=== PATIENT | female | born 1975 | race Hispanic/Latino ===

== ENCOUNTER 2019-01-21 22:36 | Emergency (ER) | payer MEDICAID, OTHER ==
[2019-01-21] MEDS ORDERED: ONDANSETRON HCL 4 MG/2 ML VIAL ONE (23:14)
[2019-01-21 23:18] LABS: BASOPHILS % (AUTO) 0.6 % (0.0-5.0); EOSINOPHILS % (AUTO) 0.1 % (0.0-8.0); HEMATOCRIT 45.1 % (36-48); LYMPHOCYTES % (AUTO) 23.4 % (21.0-51.0); MEAN CORPUSCULAR HEMOGLOBIN 27.3 pg (27.0-33.0); MEAN CORPUSCULAR HGB CONC 33.7 g/dL (32.0-36.0); MEAN CORPUSCULAR VOLUME 80.8 fL (79-99); MONOCYTES % (AUTO) 4.5 % (3.0-13.0); NEUTROPHILS % (AUTO) 71.4 % (40.0-77.0); PLATELET COUNT (AUTO) 221 K/uL (130-400); RED BLOOD CELL COUNT(AUTO) 5.59 MIL/uL (4.00-5.50); RED CELL DISTRIBUTION WIDTH 13.8 % (11.0-15.5); WHITE BLOOD COUNT (AUTO) 9.9 K/uL (4.8-10.8)
[2019-01-21 23:34] LABS: APPEARANCE,URINE Cloudy (CLEAR); BILIRUBIN,URINE Negative (NEGATIVE); COLOR,URINE Yellow (YELLOW); GLUCOSE, URINE (UA) >=1000 mg/dL (NEGATIVE); KETONES,URINE 40 mg/dL (NEGATIVE); LEUKOCYTE ESTERASE ,URINE Negative (NEGATIVE); NITRATE,URINE Positive (NEGATIVE); OCCULT BLOOD,URINE Negative (NEGATIVE); PROTEIN,URINE 300 mg/dL (NEGATIVE)
[2019-01-21 23:34] LABS: CREATININE 0.5 mg/dL (0.5-1.5); POTASSIUM 4.7 mmol/L (3.5-5.1)
[2019-01-21 23:38] LABS: ALBUMIN 3.7 g/dL (3.5-5.0); BILIRUBIN,DIRECT 0.1 mg/dL (0.0-0.3); BILIRUBIN,TOTAL 0.6 mg/dL (0.2-1.0); TOTAL PROTEIN, SERUM 7.7 g/dL (6.0-8.3)
[2019-01-21 23:48] LABS: RBC,URINE 0-1 /HPF (0-1)
[2019-01-21 23:49] LABS: BACTERIA,URINE Many /HPF (None Seen); MUCUS,URINE Few LPF (None Seen); SQUAMOUS EPITHELIAL CELL,UR Few /HPF (0-2)
[2019-01-22] MEDS ORDERED: SODIUM CHLORIDE 0.9% 1000ML 1,000 ML IV ONE (00:16)
[2019-01-22] MEDS ORDERED: CEFTRIAXONE SODIUM 1 GM ONE (01:04)
[2019-01-22] MEDS ORDERED: SODIUM CHLORIDE 0.9% 50 ML IV ONE (01:05)
== END 2019-01-22 01:46 | disposition home or self-care (01) ==
LOC: EDH 22:36
DX: E11.65 Type 2 diabetes mellitus with hyperglycemia (principal); N39.0 Urinary tract infection, site not specified; R94.5 Abnormal results of liver function studies; R93.2 Abnormal findings on diagnostic imaging of liver and biliary tract; I10 Essential (primary) hypertension
CPT/HCPCS: 36415; 76705; 80048; 80076; 81001; 82550; 82948; 83690; 84484; 85025; 93005; 96361; 96374; 96375; 99285; J0696; J2405; J7030

== ENCOUNTER 2023-05-16 14:33 | Emergency (ER) | payer OTHER ==
[~2023-05-16] VITALS: Ht 162.6 cm; Wt 79.8 kg
[2023-05-16] MEDS ORDERED: HYDROCODONE/ACETAMINOPHEN 5/325 MG TAB PO ONE (20:00)
[2023-05-16 22:16] VITALS: BP 141/74; PULSE 74; RESP 16; O2SAT 98
== END 2023-05-16 22:17 | disposition home or self-care (01) ==
LOC: EDBD 14:33 → EDH 14:33
DX: S83.91XA Sprain of unspecified site of right knee, initial encounter (principal); I10 Essential (primary) hypertension; E11.9 Type 2 diabetes mellitus without complications; W18.30XA Fall on same level, unspecified, initial encounter; Y93.01 Activity, walking, marching and hiking; Y92.89 Other specified places as the place of occurrence of the external cause; Y99.8 Other external cause status
CPT/HCPCS: 73562; 73700

== ENCOUNTER 2024-05-01 20:34 | Emergency (ER) | payer SELFPAY ==
[~2024-05-01] VITALS: Ht 157.5 cm; Wt 79.8 kg
[2024-05-01 21:02] LABS: BASOPHILS # (AUTO) 0.04 K/uL (0.00-0.20); BASOPHILS % (AUTO) 0.4 % (0.0-5.0); EOSINOPHILS # (AUTO) 0.07 K/uL (0.00-0.70); EOSINOPHILS % (AUTO) 0.7 % (0.0-8.0); HEMATOCRIT 39.2 % (36-48); IMMATURE GRANULOCYTE ABSOLUTE 0.04 K/uL (0-1); LYMPHOCYTES # (AUTO) 3.4 K/uL (1.0-4.8); LYMPHOCYTES % (AUTO) 32.8 % (21.0-51.0); MEAN CORPUSCULAR HEMOGLOBIN 27.7 pg (27.0-33.0); MEAN CORPUSCULAR HGB CONC 34.7 g/dL (32.0-36.0); MEAN CORPUSCULAR VOLUME 79.8 fL (79-99); MONOCYTES # (AUTO) 0.6 K/uL (0.1-1.0); MONOCYTES % (AUTO) 5.7 % (3.0-13.0); NEUTROPHILS # (AUTO) 6.3 K/uL (1.8-7.7); PLATELET COUNT (AUTO) 270 K/uL (130-400); RED BLOOD CELL COUNT(AUTO) 4.91 MIL/uL (4.00-5.50); RED CELL DISTRIBUTION WIDTH 13.2 % (11.0-15.5); WHITE BLOOD COUNT (AUTO) 10.5 K/uL (4.8-10.8)
[2024-05-01 21:12] LABS: APPEARANCE,URINE CLEAR (CLEAR); BILIRUBIN,URINE NEGATIVE (NEGATIVE); COLOR,URINE YELLOW (YELLOW); GLUCOSE, URINE (UA) 50 mg/dL (NEGATIVE); KETONES,URINE 5 mg/dL (NEGATIVE); LEUKOCYTE ESTERASE ,URINE NEGATIVE Leu/uL (NEGATIVE); NITRATE,URINE NEGATIVE (NEGATIVE); OCCULT BLOOD,URINE NEGATIVE (NEGATIVE); PH,URINE 5.5 (5.0-8.0); PROTEIN,URINE 70 mg/dL (NEGATIVE)
[2024-05-01 21:13] LABS: CREATININE 0.8 mg/dL (0.5-1.0); POTASSIUM 3.6 mmol/L (3.5-5.1)
[2024-05-01 21:15] LABS: ADD UA MICROSCOPIC YES
[2024-05-01 21:17] LABS: BACTERIA,URINE RARE /HPF (None Seen); CALCIUM OXALATE CRYSTALS,UR FEW /LPF (None Seen); MUCUS,URINE FEW LPF (None Seen); SQUAMOUS EPITHELIAL CELL,UR RARE /HPF (0-2)
[2024-05-01 21:24] LABS: ALBUMIN 3.7 g/dL (3.5-5.0); BILIRUBIN,DIRECT 0.1 mg/dL (0.0-0.3); BILIRUBIN,TOTAL 0.5 mg/dL (0.2-1.0); TOTAL PROTEIN, SERUM 7.8 g/dL (6.0-8.3)
[2024-05-01] MEDS: 0.9%NACL 1000ML 1,000 ML IV ONE (22:39)
[2024-05-01] MEDS: ketOROlac 30MG VIAL (30MG/ML) IVP ONE (22:40)
[2024-05-01] MEDS: ASPIRIN 325MG TAB PO ONE (22:40)
[2024-05-02] MEDS ORDERED: LACT10SO5 PO (00:56)
[2024-05-02 01:21] VITALS: BP 158/88; PULSE 86; RESP 16; TEMP 98.3; O2SAT 97
== END 2024-05-02 01:36 | disposition home or self-care (01) ==
LOC: EDBD 20:34 → EDH 20:34
DX: K59.00 Constipation, unspecified (principal); E11.65 Type 2 diabetes mellitus with hyperglycemia; R07.89 Other chest pain; I10 Essential (primary) hypertension; Z79.899 Other long term (current) drug therapy; Z98.890 Other specified postprocedural states
CPT/HCPCS: 99285; 96374; 71045; 80076; 84484; 80048; 83690; 85025; 81001; 36415; 74018; 93005; J7030; J1885

== ENCOUNTER 2025-07-15 08:49 | Emergency (ER) | payer SELFPAY ==
[~2025-07-15] VITALS: Ht 152.4 cm; Wt 79.8 kg
--- NOTE | 2025-07-15 09:14 | ERN ---
General Chief Complaint: Abdominal Pain Stated Complaint: ABD PAIN Time Seen by MD: 08:57 Source: patient History of Present Illness Initial Comments My patient, 50-year-old female, presented to the emergency department with complaint of abdominal pain. She states that her pain is generalized but more pronounced on the right lower quadrant. It is associated with nausea and vo miting. Patient describes the vomitus as yellowish colored. She denies loose stools, fever or chills. Notably, she underwent cholecystectomy in January 2025. Timing/Duration: 24 hours Severity: moderate Associated Symptoms: nausea/vomiting Allergies: Coded Allergies: No Known Allergies (Unverified Allergy, Unknown, 01/22/19) Home Meds Reported Medications Metformin HCl (Metformin HCl) 500 Mg Tablet, 1 TAB PO BIDMEALS for 30 Days, #60 TAB 0 Refills 01/09/25 Olmesartan/Hydrochlorothiazide (Olmesartan-Hctz 40-12.5 mg Tab) 40 Mg-12.5 Mg Tablet, 1 TAB PO DAILY for 30 Days, #30 TAB 0 Refills 01/09/25 Past Medical History Past Medical History: Diabetes-Type II, Hypertension Past Surgical History: Cholecystectomy, Social History Social History: Negative, Lives with family Female( History) History: Not Applicable Constitutional: (-) chills, (-) diaphoresis, (-) fever, (-) malaise, (-) weakness, (-) other documentation EENTM: (-) eye pain, (-) blurred vision, (-) tearing, (-) double vision, (-) ear pain, (-) ear discharge, (-) nose pain, (-) nose congestion, (-) throat pain, (-) Throat swelling, (-) mouth pain, (-) tooth pain, (-) mouth swelling, (-) other documentation Respiratory: (-) cough, (-) orthopnea, (-) short of breath, (-) stridor, (-) wheezing, (-) other documentation Cardiovascular: (-) chest pain, (-) edema, (-) palpitations, (-) syncope, (-) dyspnea on exertion, (-) other documentation Gastrointestinal/Abdominal: (+) nausea, (+) vomiting, (+) abdominal pain; (-) diarrhea, (-) abdominal distention, (-) constipation, (-) rectal bleeding, (-) dark stool/melena, (-) other documentation Genitourinary: (-) vaginal discharge, (-) vaginal bleeding, (-) dysuria, (-) frequency, (-) hematuria, (-) pain, (-) other documentation Musculoskeletal: (+) back pain; (-) Neck pain, (-) Flank Pain, (-) joint pain, (-) joint swelling, (-) muscle pain, (-) muscle stiffness, (-) gout, (-) other documentation Skin: (-) laceration, (-) contusion, (-) abrasion, (-) abscess, (-) rash, (-) change in color, (-) change in hair, (-) change in nails, (-) diaphoresis, (-) dryness, (-) other documentation Neuro: (-) altered mental status, (-) headache, (-) syncope, (-) paralysis, (-) numbness, (-) seizure, (-) pre-existing deficit, (-) tremors, (-) weakness, (-) dizziness, (-) slurred speech, (-) vertigo, (-) other documentation Physical Exam General Appearance: (+) moderate distress Orientation: (+) alert, (+) oriented x 3 Head/Face Trauma: No Eye: bilateral eye normal inspection Ear, Nose, Throat: (+) hearing grossly normal, (+) normal ENT inspection, (+) moist mucous membraine Neck: (+) normal inspection, (+) supple, (+) full range of motion Respiratory: (+) chest non-tender, (+) lungs clear, (+) well ventilated Heart: (+) regular, (+) no gallop Vascular: (+) no edema Gastrointestinal: (+) soft, (+) tender (With deep palpation) Back: (+) normal inspection, (+) no CVA tenderness, (+) no vertebral tenderness Extremities: (+) normal range of motion, (+) non-tender, (+) normal inspection, (+) no pedal edema Neurologic/Psychiatric: (+) normal speech, (+) no motor defecits, (+) no sens ory deficits Skin: (+) normal color; (-) warm/dry, (-) cyanosis, (-) diaphoresis, (-) jaundice, (-) mottled, (-) pallor, (-) rash Results Laboratory and Microbiology Lab and Micro Result Laboratory Tests Test 07/15/25 09:16 07/15/25 09:20 Urine Color COLORLESS (YELLOW) Urine Appearance CLOUDY (CLEAR) H Urine pH 7.0 (5.0-8.0) Urine Specific [place] 1.020 (1.001-1.031) Urine Protein 10 mg/dL (NEGATIVE) H Urine Glucose (UA) 300 mg/dL (NEGATIVE) H Urine Ketones NEGATIVE mg/dL (NEGATIVE) Urine Occult Blood LARGE (NEGATIVE) H Urine Nitrate NEGATIVE (NEGATIVE) Urine Bilirubin NEGATIVE mg/dL (NEGATIVE) Urine Urobilinogen 0.2 mg/dL (0.2-1.0) Urine Leukocyte Esterase NEGATIVE Lidia/uL Urine RBC 51-100 /HPF (0-1) H Urine WBC 0-1 /HPF (0-1) Urine Squamous Epithelial Cells Few /HPF (0-2) Urine Bacteria None Seen /HPF (None Seen) Urine HCG, Qualitative NEGATIVE (NEGATIVE) White Blood Count 11.2 K/uL (4.8-10.8) H Red Blood Count 4.88 MIL/uL (4.00-5.50) Hemoglobin 13.4 g/dL (12.0-16.0) Hematocrit 40.0 % (36-48) Mean Corpuscular Volume 82.0 fL (79-99) Mean Corpuscular Hemoglobin 27.5 pg (27.0-33.0) Mean Corpuscular Hemoglobin Concent 33.5 g/dL (32.0-36.0) Red Cell Distribution Width 13.4 % (11.0-15.5) Platelet Count 312 K/uL (130-400) Mean Platelet Volume 11.5 fL (7.5-10.5) H Nucleated Red Blood Cells 0.0 % (0.0-0.19) Sodium Level 139 mmol/L (136-145) Potassium Level 3.7 mmol/L (3.5-5.1) Chloride Level 102 mmol/L (101-111) Carbon Dioxide Level 28 mmol/L (21-32) Blood Urea Nitrogen 12 mg/dL (7-18) Creatinine 0.7 mg/dL (0.5-1.0) Glomerular Filtration Rate Calc 107 mL/min (>90) Random Glucose 244 mg/dL (70-105) H Total Calcium 8.7 mg/dL (8.5-10.1) Total Bilirubin 0.4 mg/dL (0.2-1.0) Direct Bilirubin 0.1 mg/dL (0.0-0.3) Aspartate Amino Transf (AST/SGOT) 21 U/L (10-37) Alanine Aminotransferase (ALT/SGPT) 30 U/L (12-78) Alkaline Phosphatase 120 U/L (50-136) Troponin I High Sensitivity 5 ng/L (4-50) Total Protein 7.3 g/dL (6.0-8.3) Albumin 3.5 g/dL (3.5-5.0) Lipase 68 U/L (16-77) EKG/XRAY/US/CT/MRI CT Scan Comment CT abdomen and pelvis- NAD MDM MDM: Differential diagnosis: Gastritis, GERD, Rationale: Tests considered and ordered secondary to shared decision making include: Previous outside records reviewed: Old ER visits. Risk of complication and/or morbidity or mortality of patient management: None Medications-Per medication reconciliation Need for hospitalization: Patient does not meet criteria for hospitalization. Need for emergency major/minor surgery: No Patient is a 42 female coming in complaining of abdominal discomfort and nauseousness. Patient has a recent surgery removing his gallbladder. Laboratory workup within normal limits. Patient will be discharged in stable condition patient is tolerating oral intake. ED Course Orders Procedure Category Date Status Time Cbc Without LAB 07/15/25 Complete Differential 09:10 Basic Metabolic Panel LAB 07/15/25 Complete 09:10 Hepatic Function Panel LAB 07/15/25 Complete 09:10 Ct Abdomen/Pelvis CT 07/15/25 Resulted W/Contrast 09:10 Troponin I High LAB 07/15/25 Complete Sensitivity 09:10 Urinalysis Profile LAB 07/15/25 Complete 09:10 Ondansetron 4mg PHA 07/15/25 Complete Tablet (Zofran 4mg 09:30 Acetaminophen 500mg PHA 07/15/25 Complete Tab (Tylenol 500mg T 09:30 ,Urine Test LAB 07/15/25 Complete 09:17 Ondansetron 4mg Inj PHA 07/15/25 Complete (Zofran 4mg Inj) 09:30 Lipase LAB 07/15/25 Complete 09:20 0.9% Nacl 500ml PHA 07/15/25 Complete Iv.Soln (Ns 500ml 09:30 0.9% Nacl 500ml PHA 07/15/25 Complete Iv.Soln (Ns 500ml 09:30 Iohexol (Omnipaque) PHA 07/15/25 Complete 10:23 Current Medications Medications (Trade) Dose Ordered Sig/Reynaldo Route PRN Reason Start Time Stop Time Status Last Admin Dose Admin Acetaminophen (TYLenol 500MG TAB) 500 mg ONCE ONCE PO 07/15/25 09:30 07/15/25 09:31 DC 07/15/25 09:32 Iohexol (Omnipaque) 35,000 mg STK-MED ONCE IV 07/15/25 10:23 07/15/25 10:23 DC Ondansetron HCl (zoFRAN 4MG TABLET) 4 mg ONCE ONCE PO 07/15/25 09:30 07/15/25 09:21 DC Ondansetron HCl (zoFRAN 4MG INJ) 4 mg ONCE ONCE IVP 07/15/25 09:30 07/15/25 09:31 DC 07/15/25 09:33 Sodium Chloride 500 ml @ 0 mls/hr Q0M IV 07/15/25 09:30 07/15/25 09:29 DC Sodium Chloride 500 ml @ 0 mls/hr Q0M ONCE IV 07/15/25 09:30 07/15/25 09:31 DC 07/15/25 09:35 Vital Signs Date Time Temp Pulse Resp B/P (MAP) Pulse Ox O2 Delivery O2 Flow Rate FiO2 07/15/25 11:02 98.1 67 18 137/76 97 Room Air* 0 07/15/25 09:39 77 18 151/84 94 Room Air* 0 07/15/25 09:32 98.2 07/15/25 08:56 98.2 83 22 180/99 99 Room Air 0 DX & DISP Disposition: Discharge Departure Impression: Primary Impression: Viral gastritis Condition: Stable Scripts Acetaminophen (Tylenol) 500 Mg Tab 1 TAB PO Q6HPRN PRN for pain or fever for 5 Days, #30 TAB 0 Refills Prov: PORTER GARZA MD 07/15/25 Pantoprazole Sodium (Protonix) 40 Mg Ectab 1 TAB PO DAILY for 30 Days, #30 TAB 0 Refills Prov: PORTER GARZA MD 07/15/25 Lactobacillus Acidophilus (Acidophilus Probiotic) 500 Million Cell Capsule 1 CAP PO BID for 30 Days, #60 CAP 0 Refills Prov: PORTER GARZA MD 07/15/25 Additional Instructions: FOLLOW-UP WITH PRIMARY CARE PROVIDER IN 1 TO 2 DAYS. TAKE MEDICATIONS DIRECTED HERE IN THE EMERGENCY ROOM. OKAY TO CONTINUE HOME MEDICATIONS UNLESS OTHERWISE DISCUSSED DURING YOUR VISIT IN THE EMERGENCY ROOM TODAY. RETURN TO YOUR NEAREST EMERGENCY ROOM IF SYMPTOMS WORSEN OR IF THERE IS NO IMPROVEMENT. CALL 911 IF YOU NEED IMMEDIATE ASSISTANCE. TAKE TYLENOL [id number] NEEDED AND IF NO CONTRAINDICATIONS ARE PRESENT. INCREASE ORAL HYDRATION. A WOUND CULTURE OR URINE CULTURE WAS ORDERED HERE IN THE EMERGENCY ROOM DEPARTMENT PLEASE FOLLOW-UP WITH PRIMARY CARE PROVIDER AND ADVISE THEM TO GET REPORTS FROM OUR FACILITY. IF YOU HAD ANY ZAIDA WRAP/SPLINTS THAT WERE APPLIED HERE, PLEASE DO NOT REMOVE THEM UNTIL YOU SEE YOUR PRIMARY CARE OR SPECIALTY. Referrals: Referrals: SELF,REFERRAL (PCP) POPEYE GARDINER MD, SANDEEP T MD Time of Disposition: 12:01 DOROTEO DINH MD Jul 15, 2025 09:14 PORTER GARZA MD Jul 15, 2025 12:03
[2025-07-15 09:28] LABS: NUCLEATED RED BLOOD CELLS 0.0 % (0.0-0.19); PLATELET COUNT (AUTO) 312.0 K/uL (130-400); RED BLOOD CELL COUNT(AUTO) 4.88 MIL/uL (4.00-5.50); RED CELL DISTRIBUTION WIDTH 13.4 % (11.0-15.5); WHITE BLOOD COUNT (AUTO) 11.2 K/uL (4.8-10.8)
[2025-07-15] MEDS ORDERED: 0.9% NACL 500ML IV.SOLN 500 ML IV SCH (09:30)
[2025-07-15 09:32] VITALS: TEMP 98.2
[2025-07-15 09:35] LABS: CREATININE 0.7 mg/dL (0.5-1.0); GLOMERULAR FILTR. RATE CALC 107.0 mL/min (>90); GLUCOSE,RANDOM 244.0 mg/dL (70-105); SODIUM SERUM 139.0 mmol/L (136-145); UREA NITROGEN, BLOOD 12.0 mg/dL (7-18)
[2025-07-15] MEDS: 0.9% NACL 500ML IV.SOLN 500 ML IV ONE (09:35)
[2025-07-15 09:39] LABS: ASPARTATE AMINOTRANSFERASE 21.0 U/L (10-37); TOTAL PROTEIN, SERUM 7.3 g/dL (6.0-8.3)
[2025-07-15 09:40] LABS: APPEARANCE,URINE CLOUDY (CLEAR); GLUCOSE, URINE (UA) 300 mg/dL (NEGATIVE); LEUKOCYTE ESTERASE ,URINE NEGATIVE Leu/uL (NEGATIVE); NITRATE,URINE NEGATIVE (NEGATIVE); OCCULT BLOOD,URINE LARGE (NEGATIVE)
[2025-07-15 09:43] LABS: ADD UA MICROSCOPIC YES
[2025-07-15 10:03] LABS: SQUAMOUS EPITHELIAL CELL,UR Few /HPF (0-2)
[2025-07-15] MEDS ORDERED: IOHEXOL 350 MG/ML 100ML INFUS..BTL IV ONE (10:23)
--- NOTE | 2025-07-15 11:35 | HMCIMG ---
Duplicate report /[place]
[2025-07-15 12:23] VITALS: BP 146/80; PULSE 73; RESP 18; TEMP 98.1; O2SAT 98
--- NOTE | 2025-07-15 12:25 | NUR ---
PT RECEIVED HER DISCHARGE DOCUMENTS, PRESCRIPTIONS AND EXCUSE. IV REMOVED. EDUCATED HER ON BLAND DIET. SHE VERBALIZED UNDERSTANDING. AMBULATED TO DISCHARGE WITH A STEADY GAIT.
== END 2025-07-15 12:26 | disposition home or self-care (01) ==
LOC: EDH 08:49
DX: A08.4 Viral intestinal infection, unspecified (principal); E11.9 Type 2 diabetes mellitus without complications; I10 Essential (primary) hypertension; Z79.899 Other long term (current) drug therapy; Z90.49 Acquired absence of other specified parts of digestive tract
CPT/HCPCS: 99285; 74177; 96374; 96361; 80076; 84484; 80048; 83690; 85027; 81001; 81025; 36415; J7040; J2405; Q9967; Q0162